=== PATIENT | male | born 1980 | race African-American/Black ===

== ENCOUNTER 2021-08-19 08:39 | Emergency (ER) | payer MEDICAID ==
[~2021-08-19] VITALS: Ht 180.3 cm; Wt 77.0 kg
[2021-08-19] MEDS ORDERED: MORPHINE SULFATE 4 MG/ML CPJ (NOT FOR IM USE) IV STA (09:21)
[2021-08-19] MEDS ORDERED: ONDANSETRON HCL 4MG/2ML INJ IV STA (09:21)
[2021-08-19] MEDS ORDERED: SODIUM CHLORIDE 0.9% 1,000 ML IV ONE (09:30)
[2021-08-19 10:01] LABS: HEMATOCRIT. 46.3 % (42.0-52.0); HEMOGLOBIN. 15.5 g/dL (14.0-18.0); MEAN CORPUSCULAR HEMOGLOBIN 30.1 pg (28.0-32.0); MEAN CORPUSCULAR VOLUME 89.8 fL (80.0-94.0); MEAN PLATELET VOLUME 8.2 fl (7.4-10.4); PLATELET 264 x1000/uL (130-400); RED BLOOD CELL COUNT 5.15 mill/uL (4.7-6.1); RED CELL DISTRIBUTION WIDTH 13.8 % (11.6-14.6)
[2021-08-19 10:07] LABS: CHLORIDE 108 mEq/L (98-107)
[2021-08-19 10:10] LABS: ETHANOL BLOOD < 10 mg/dL; INR 1.1; PROTHROMBIN TIME 11.4 sec (9.6-11.0)
[2021-08-19 10:46] LABS: PLATELET ESTIMATE NORMAL
[2021-08-19] MEDS ORDERED: METRONIDAZOLE 500MG TABLET PO ONE (11:00)
[2021-08-19] MEDS ORDERED: KETOROLAC 30MG/ML VIAL IV ONE (11:00)
[2021-08-19] MEDS ORDERED: LEVOFLOXACIN 500MG TABLET PO ONE (11:00)
[2021-08-19] MEDS ORDERED: ONDA4TAB11 PO (11:36)
[2021-08-19] MEDS ORDERED: METR500T PO (11:36)
[2021-08-19] MEDS ORDERED: CIPR-263 MT (11:36)
[2021-08-19] MEDS ORDERED: IMOD MT (11:36)
[2021-08-19 12:53] VITALS: BP 130/6
== END 2021-08-19 12:53 | disposition home or self-care (01) ==
LOC: ER 08:39
DX: R10.9 Unspecified abdominal pain (principal); F12.10 Cannabis abuse, uncomplicated; F17.200 Nicotine dependence, unspecified, uncomplicated
CPT/HCPCS: 36415; 74176; 80053; 80320; 83690; 85025; 85610; 87040; 93005; 96361; 96374; 96375; 99285; J1885; J2270; J2405; J7030; G0480

== ENCOUNTER 2021-08-20 13:53 | Emergency (ER) | payer MEDICAID ==
[~2021-08-20] VITALS: Ht 165.1 cm; Wt 78.0 kg
[~2021-08-20 13:53] MED LIST: CIPR-263 MT; IMOD MT; METR500T PO; ONDA4TAB11 PO
[2021-08-20] MEDS ORDERED: MAGNESIUM/ALUMINUM HYDROXIDE/SIMETHICONE 30ML UDC PO STA (17:26)
[2021-08-20] MEDS ORDERED: ONDANSETRON HCL 4MG/2ML INJ IV STA (17:26)
[2021-08-20] MEDS ORDERED: SODIUM CHLORIDE 0.9% 1,000 ML IV ONE (17:30)
[2021-08-20 17:58] LABS: BASOPHILS % 0.2 % (0.0-2.0); HEMATOCRIT. 44.1 % (42.0-52.0); HEMOGLOBIN. 14.9 g/dL (14.0-18.0); LYMPHOCYTES % 9.4 % (20.0-50.0); MEAN CORPUSCULAR HEMOGLOBIN 30.6 pg (28.0-32.0); MEAN CORPUSCULAR VOLUME 90.3 fL (80.0-94.0); MEAN PLATELET VOLUME 8.1 fl (7.4-10.4); MONOCYTES % 11.8 % (2.0-8.0); NEUTROPHILS % 78.6 % (40.0-76.0); PLATELET 256 x1000/uL (130-400); RED BLOOD CELL COUNT 4.88 mill/uL (4.7-6.1); RED CELL DISTRIBUTION WIDTH 14.1 % (11.6-14.6)
[2021-08-20 18:03] LABS: CHLORIDE 106 mEq/L (98-107)
[2021-08-20 18:05] LABS: INR 1.1; PROTHROMBIN TIME 11.4 sec (9.6-11.0)
[2021-08-20] MEDS ORDERED: IOHEXOL-300 100 ML BOTTLE ONE (22:26)
[2021-08-20] MEDS ORDERED: ONDANSETRON HCL 4MG/2ML INJ IV ONE (23:15)
[2021-08-20 23:57] LABS: CLARITY URINE CLEAR (CLEAR); COLOR URINE YELLOW (YELLOW); KETONES URINE TRACE (NEGATIVE); LEUKOCYTE ESTERASE URINE NEGATIVE (NEGATIVE); NITRITE URINE NEGATIVE (NEGATIVE); OCCULT BLOOD URINE 1+ (NEGATIVE); PH URINE 7.5 (4.5-8.0); PROTEIN URINE 1+ (NEGATIVE); SPECIFIC GRAVITY URINE 1.086 (1.005-1.030); UROBILINOGEN URINE 0.2 E.U./dL (0.2-1.0)
[2021-08-21 00:27] VITALS: BP 131/73
== END 2021-08-21 00:31 | disposition home or self-care (01) ==
LOC: ER 14:03
DX: K52.9 Noninfective gastroenteritis and colitis, unspecified (principal); R10.9 Unspecified abdominal pain; R11.10 Vomiting, unspecified; K21.9 Gastro-esophageal reflux disease without esophagitis
CPT/HCPCS: 36415; 71045; 74177; 80053; 81003; 83690; 85025; 85610; 96374; 96376; 99285; J2405; J7030; Q9967

== ENCOUNTER 2021-08-26 14:55 | Emergency (ER) | payer MEDICAID ==
[~2021-08-26] VITALS: Ht 180.3 cm; Wt 75.0 kg
[2021-08-26] MEDS ORDERED: ONDANSETRON HCL 4MG/2ML INJ IV STA (15:47)
[2021-08-26] MEDS ORDERED: FAMOTIDINE 20MG/2ML VIAL IV STA (15:47)
[2021-08-26] MEDS ORDERED: MAGNESIUM/ALUMINUM HYDROXIDE/SIMETHICONE 30ML UDC PO STA (15:47)
[2021-08-26] MEDS ORDERED: VISCOUS LIDOCAINE 2% 15 ML UDC MM ONE (16:00)
[2021-08-26] MEDS ORDERED: SODIUM CHLORIDE 0.9% 1,000 ML IV ONE (16:00)
[2021-08-26 16:13] LABS: HEMATOCRIT. 46.8 % (42.0-52.0); HEMOGLOBIN. 15.8 g/dL (14.0-18.0); MEAN CORPUSCULAR HEMOGLOBIN 30.5 pg (28.0-32.0); MEAN CORPUSCULAR VOLUME 90.6 fL (80.0-94.0); MEAN PLATELET VOLUME 8.1 fl (7.4-10.4); PLATELET 310 x1000/uL (130-400); RED BLOOD CELL COUNT 5.16 mill/uL (4.7-6.1); RED CELL DISTRIBUTION WIDTH 13.2 % (11.6-14.6)
[2021-08-26 16:21] LABS: CHLORIDE 105 mEq/L (98-107)
[2021-08-26 16:25] LABS: ETHANOL BLOOD < 10 mg/dL
[2021-08-26] MEDS ORDERED: KETOROLAC 15MG/ML VIAL IV NR (16:30)
[2021-08-26 16:58] LABS: PLATELET ESTIMATE NORMAL
[2021-08-26] MEDS ORDERED: COM10 MT (17:50)
[2021-08-26] MEDS ORDERED: FAMO-135 MT (17:50)
[2021-08-26 19:30] VITALS: BP 137/80
== END 2021-08-26 19:34 | disposition home or self-care (01) ==
LOC: ER 14:55
DX: K52.9 Noninfective gastroenteritis and colitis, unspecified (principal); F12.10 Cannabis abuse, uncomplicated; Z98.890 Other specified postprocedural states
CPT/HCPCS: 36415; 80053; 80320; 83605; 83690; 85025; 86140; 87040; 93005; 96361; 96374; 96375; 99284; J1885; J2405; J3490; J7030; G0480

== ENCOUNTER 2022-10-13 13:08 | Emergency (ER) | payer MEDICAID, OTHER ==
[~2022-10-13] VITALS: Ht 180.3 cm; Wt 75.0 kg
[~2022-10-13 13:08] MED LIST changes: +COM10 MT; +FAMO-135 MT
[2022-10-13 13:25] VITALS: BP 123/74
[2022-10-13] MEDS ORDERED: VISCOUS LIDOCAINE 2% 15 ML UDC PO STA (16:05)
[2022-10-13] MEDS ORDERED: ONDANSETRON 4MG ODT PO STA (16:05)
[2022-10-13] MEDS ORDERED: MAGNESIUM/ALUMINUM HYDROXIDE/SIMETHICONE 30ML UDC PO STA (16:05)
[2022-10-13] MEDS ORDERED: FAMOTIDINE 20MG TABLET PO ONE (16:15)
[2022-10-13] MEDS ORDERED: FAMO20TA8 MT (17:54)
== END 2022-10-13 18:55 | disposition home or self-care (01) ==
LOC: ER 13:08
DX: R19.7 Diarrhea, unspecified (principal); F12.10 Cannabis abuse, uncomplicated; Z98.890 Other specified postprocedural states
CPT/HCPCS: 99284; Q0162